=== PATIENT | male | born 1980 | race Caucasian/White ===

== ENCOUNTER 2020-01-17 17:50 | Inpatient (IN) | payer BC ==
[~2020-01-17] VITALS: Ht 162.6 cm; Wt 65.8 kg
[~2020-01-17 17:50] MED LIST: ESOM20CA PO; LISI-167 PO; METO25TA2 PO; METO25TA91 PO; MEXI150C PO; NAPR-856 PO; OMEP-110 PO; OMEP40CA42 PO
--- NOTE | 2020-01-17 18:00 | NUR ---
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 MARGO MD EVALUATED PT, NO CODE NEURO AT THIS TIME PER ERP. NEURO INTACT. PT REPORTS ALL SYMPTOMS RESOLVED AT THIS TIME EXCEPT FOR WEAKNESS. SPEECH CLEAR. EQUAL AND STRONG GRASPS, FLEXION, DORSIFLEXION. CMS INTACT. REPORT AND CARE TO PRIMARY RN NANI AT BEDSIDE. DR. ARAGON AT BEDSIDE
--- NOTE | 2020-01-17 18:10 | NUR ---
ERP AT BS NOW. Addendum: 01/17/20 at 1811 by HBENSON SIGNIFICANT OTHER AT . Addendum: 01/17/20 at 1832 by HBENSON PT CURRENTLY IN [place] ON MONITOR.
[2020-01-17] MEDS ORDERED: SODIUM CHLORIDE FLUSH 10ML SYR IVF ONE (18:30)
[2020-01-17 18:39] LABS: BASOPHILS # (AUTO) 0.03 x10^3/uL (0-0.1); BASOPHILS % (AUTO) 0 % (0-1); EOSINOPHILS # (AUTO) 0.05 x10^3/uL (0-0.4); EOSINOPHILS % (AUTO) 1 % (1-7); LYMPHOCYTES # (AUTO) 2.49 x10^3/uL (1-3.4); LYMPHOCYTES % (AUTO) 27 % (22-44); MD NO; MEAN CORPUSCULAR HEMOGLOBIN 29.7 pg (27.5-34.5); MEAN CORPUSCULAR HGB CONC 32.8 g/dL (33.2-36.2); MEAN CORPUSCULAR VOLUME 90.3 fL (81-97); MEAN PLATELET VOLUME 8.3 fL (7.4-10.4); MONOCYTES # (AUTO) 0.79 x10^3/uL (0.2-0.8); MONOCYTES % (AUTO) 8 % (2-9); NEUTROPHILS # (AUTO) 6.06 x10^3/uL (1.8-6.8); NEUTROPHILS % (AUTO) 64 % (42-75); PLATELET COUNT 218 x10^3/uL (130-400); RED BLOOD COUNT 4.89 x10^6/uL (4.38-5.82); RED CELL DISTRIBUTION WIDTH 13.5 % (9.4-14.8)
[2020-01-17 18:46] LABS: INTERNATIONAL NORMALIZED RATIO 1.07 (0.93-1.1); PROTHROMBIN TIME 11.4 Seconds (9.6-11.5)
[2020-01-17 18:48] LABS: ALANINE AMINOTRANSFERASE 38 U/L (12-78); ANION GAP 8 mmol/L (5-15); CALCIUM 8.7 mg/dL (8.5-10.1); CHLORIDE 111 mmol/L (98-107); CREATININE 0.85 mg/dL (0.7-1.3)
[2020-01-17 18:52] LABS: ALKALINE PHOSPHATASE 103 U/L (45-117); BILIRUBIN,TOTAL 0.3 mg/dL (0.2-1.0); TOTAL PROTEIN 7.5 g/dL (6.4-8.2); TROPONIN I < 0.015 ng/mL (0.000-0.045)
--- NOTE | 2020-01-17 19:00 | NUR ---
PT BACK FROM IMAGING. REPORTED TO TEX ROWE.
--- NOTE | 2020-01-17 19:18 | NUR ---
Report received from [place] [place] Pt reports he feels better.
--- NOTE | 2020-01-17 20:01 | NUR ---
Pt asleep on [place]. VSS. Spoke with pt's SO. Updated that chart is up for re-eval now that scans are back. No needs at this time.
[2020-01-17] MEDS ORDERED: ASPIRIN 81 MG TABLET CHEW ONE (20:18)
[2020-01-17] MEDS ORDERED: FLUO90CA5 PO (20:27)
--- NOTE | 2020-01-17 20:27 | NUR ---
Pt medicated per MAR. Pt reports tiredness and denies any other complaints. Aware of plan to admit. No needs at this time.
[2020-01-17] MEDS ORDERED: ASPIRIN 81 MG TABLET CHEW PO ONE (20:30)
[2020-01-17] MEDS ORDERED: SODIUM CHLORIDE FLUSH 10ML SYR IVF PRN (20:30)
--- NOTE | 2020-01-17 20:50 | NUR ---
report given to JAE Price
[2020-01-17] MEDS ORDERED: POLYETHYLENE GLYCOL 17 GM PACKET PO PRN (21:00)
[2020-01-17] MEDS ORDERED: DOCUSATE 100 MG CAPSULE PO PRN (21:00)
[2020-01-17] MEDS ORDERED: ACETAMINOPHEN 650 MG/20.3 ML UDC PO PRN (21:00)
[2020-01-17] MEDS ORDERED: BISACODYL 10 MG SUPP PR PRN (21:00)
[2020-01-17] MEDS ORDERED: ONDANSETRON 4 MG TABLET PO PRN (21:00)
[2020-01-17] MEDS ORDERED: ENALAPRILAT 1.25 MG/ML, 2ML IV PRN (21:00)
[2020-01-17 21:15] VITALS: BP 152/86
[2020-01-17] MEDS: ATORVASTATIN 40 MG TABLET PO SCH (22:22)
[2020-01-17] MEDS: MEXILETINE 150 MG CAPSULE PO SCH (22:22)
[2020-01-18 00:15] VITALS: BP 139/87
[2020-01-18 05:54] LABS: CHOL/HDL RATIO 3.8; LDL/HDL RATIO 2.2 (0.5-3.0)
[2020-01-18 05:58] VITALS: BP 149/75
[2020-01-18] MEDS: METOPROLOL SUCCINATE 25 MG TAB.ER.24H PO SCH (06:00)
[2020-01-18] MEDS: MEXILETINE 150 MG CAPSULE PO SCH ×3 (06:00→19:56)
[2020-01-18 07:18] VITALS: BP 149/80
[2020-01-18] MEDS: ASPIRIN 81 MG TABLET CHEW PO/NG SCH (09:41)
[2020-01-18 12:01] VITALS: BP 127/80
[2020-01-18 18:20] VITALS: BP 149/87
[2020-01-18] MEDS: ATORVASTATIN 40 MG TABLET PO SCH (19:56)
[2020-01-19] VITALS: BP 135/85
[2020-01-19 04:08] VITALS: BP 129/67
[2020-01-19] MEDS: MEXILETINE 150 MG CAPSULE PO SCH (05:00)
[2020-01-19 06:42] VITALS: BP 144/85
[2020-01-19] MEDS: METOPROLOL SUCCINATE 25 MG TAB.ER.24H PO SCH (08:48)
[2020-01-19] MEDS: ASPIRIN 81 MG TABLET CHEW PO/NG SCH (08:59)
[2020-01-19] MEDS ORDERED: ATOR40TA78 PO (09:46)
[2020-01-19] MEDS ORDERED: ASPI-515 PO/NG (09:46)
== END 2020-01-19 10:53 | disposition home or self-care (01) | DRG 69 ==
LOC: ED 18:33 → EDIP 20:23 → 4WST 21:05
PROVIDERS: ADMIT Internal Medicine; ATTEND Family Medicine
DX: G45.9 Transient cerebral ischemic attack, unspecified (principal); I50.22 Chronic systolic (congestive) heart failure; F32.9 Major depressive disorder, single episode, unspecified; I11.0 Hypertensive heart disease with heart failure
CPT/HCPCS: 36415; 70450; 70551; 71045; 80053; 80061; 84484; 85025; 85610; 85730; 93005; 93306; 93880; 99285; G0378

== ENCOUNTER 2020-08-08 00:46 | Emergency (ER) | payer BC ==
[~2020-08-08] VITALS: Ht 162.6 cm; Wt 69.4 kg
[~2020-08-08 00:46] MED LIST changes: +ASPI-515 PO/NG; +ATOR40TA78 PO; +FLUO90CA5 PO
--- NOTE | 2020-08-08 01:10 | NUR ---
ASSESSMENT MADE. SEEN BY PA. ORDERS MADE.
[2020-08-08] MEDS ORDERED: KETOROLAC 30 MG/1 ML ONE (01:11)
--- NOTE | 2020-08-08 01:14 | NUR ---
IV PLACED. BLOOD DRAWN. MEDICATED.
[2020-08-08] MEDS ORDERED: ONDANSETRON 2MG/ML, 2ML ONE (01:15)
--- NOTE | 2020-08-08 01:17 | NUR ---
Pt refuses zofran at this time. WCTM.
[2020-08-08 01:27] LABS: BASOPHILS % (AUTO) 1 % (0-1); EOSINOPHILS % (AUTO) 1 % (1-7); LYMPHOCYTES % (AUTO) 55 % (22-44); MEAN CORPUSCULAR HEMOGLOBIN 29.7 pg (27.5-34.5); MEAN PLATELET VOLUME 8.8 fL (7.4-10.4); MONOCYTES % (AUTO) 11 % (2-9); PLATELET COUNT 250 x10^3/uL (130-400); RED BLOOD COUNT 5.03 x10^6/uL (4.38-5.82); RED CELL DISTRIBUTION WIDTH 13.5 % (9.4-14.8)
[2020-08-08] MEDS ORDERED: KETOROLAC 30 MG/1 ML IVPush ONE (01:30)
[2020-08-08] MEDS ORDERED: ONDANSETRON 2MG/ML, 2ML IVPush ONE (01:30)
[2020-08-08 01:34] LABS: ALBUMIN 4.2 g/dL (3.4-5.0); ANION GAP 5 mmol/L (5-15); CALCIUM 8.5 mg/dL (8.5-10.1); CHLORIDE 113 mmol/L (98-107); CREATININE 0.91 mg/dL (0.7-1.3)
[2020-08-08 01:59] LABS: MD YES
--- NOTE | 2020-08-08 01:59 | NUR ---
Pt HR low and md at bedside for assessment. Md states "pt more than likely vagaling down. Just keep an eye on it... his blood pressure is fine."
[2020-08-08 02:10] LABS: BANDS%(MANUAL) 2 % (0-7); EOS#(MANUAL) 0.46 x10^3/uL (0.0-0.4); EOS% (MANUAL) 3 % (1-7); LYMPH#(MANUAL) 3.34 x10^3/uL (1-3.4); LYMPHS% (MANUAL) 22 % (22-44); MONOS#(MANUAL) 1.98 x10^3/uL (0.3-2.7); MONOS% (MANUAL) 13 % (2-9); REACTIVE LYMPHS # (MANUAL) 2.43 x10^3/uL (0-0); REACTIVE LYMPHS % (MANUAL) 16 % (0-0); SEG#(MANUAL) 6.69 x10^3/uL (1.8-6.8); SEGS% (MANUAL) 44 % (42-75)
[2020-08-08 02:11] LABS: <PLATELET ESTIMATE> ADEQUATE; <RBC MORPHOLOGY> NORMAL
[2020-08-08 02:12] LABS: <PLT MORPHOLOGY> NORMAL PLT MORPH
[2020-08-08 03:03] VITALS: BP 133/83
[2020-08-08 04:02] LABS: MICROSCOPIC INDICATED
[2020-08-08] MEDS ORDERED: POTASSIUM CHLORIDE 20 MEQ TAB.ER.PRT ONE (04:20)
[2020-08-08] MEDS ORDERED: POTASSIUM CHLORIDE 20 MEQ TAB.ER.PRT PO ONE (04:30)
== END 2020-08-08 04:33 | disposition home or self-care (01) ==
LOC: ED 01:29
DX: N20.1 Calculus of ureter (principal); R11.2 Nausea with vomiting, unspecified; R10.13 Epigastric pain; E87.6 Hypokalemia; I10 Essential (primary) hypertension; Z86.73 Personal history of transient ischemic attack (TIA), and cerebral infarction without residual deficits
CPT/HCPCS: 36415; 74176; 80048; 81001; 82040; 85025; 96374; 99284; J1885